=== PATIENT | female | born 1990 | race Caucasian/White ===

== ENCOUNTER 2017-02-06 10:04 | Emergency (ER) | payer MEDICAID ==
[2017-02-06 12:03] LABS: BASOPHIL % 0.3 % (0-2); PLATELET COUNT 388 x10^3mcL (130-400)
[2017-02-06 12:24] LABS: CALCIUM 9.3 mg/dL (8.5-10.1); CARBON DIOXIDE 24.8 mmol/L (21-32); CHLORIDE SERUM 101 mmol/L (98-107); CREATININE SERUM 0.7 mg/dL (0.6-1.0); GFR1 > 60 mL/min; GLUCOSE SERUM 119 mg/dL (74-106); SODIUM SERUM 137 mmol/L (136-145)
[2017-02-06 12:29] LABS: ALBUMIN 4.2 g/dL (3.4-5.0); ALKALINE PHOSPHATASE 87 U/L (46-116); ALT/SGPT 74 U/L (14-59); AST/SGOT 24 U/L (15-37); LIPASE 77 IU/L (73-393)
[2017-02-06 12:30] LABS: TOTAL PROTEIN, SERUM 8.7 g/dL (6.4-8.2)
[2017-02-06 15:45] VITALS: BP 121/60
== END 2017-02-06 15:45 | disposition home or self-care (01) ==
LOC: ED 10:04
PROVIDERS: Emergency Medicine
DX: R10.13 Epigastric pain (principal); R11.10 Vomiting, unspecified; R50.9 Fever, unspecified; Q90.9 Down syndrome, unspecified
CPT/HCPCS: J7030

== ENCOUNTER 2019-07-01 18:27 | Emergency (ER) | payer MEDICAID ==
[~2019-07-01] VITALS: Ht 142.2 cm; Wt 63.0 kg
[2019-07-01 21:38] LABS: PLATELET COUNT 347 x10^3mcL (130-400); RED CELL DISTRIBUTION WIDTH 14.3 % (11.5-14.5)
[2019-07-01 21:46] LABS: CALCIUM 8.3 mg/dL (8.5-10.1); CARBON DIOXIDE 28.7 mmol/L (21-32); CHLORIDE SERUM 103 mmol/L (98-107); CREATININE SERUM 0.9 mg/dL (0.6-1.0); GFR1 > 60 mL/min; GLUCOSE SERUM 97 mg/dL (74-106); POTASSIUM SERUM 3.9 mmol/L (3.5-5.1); SODIUM SERUM 140 mmol/L (136-145)
[2019-07-01 21:51] LABS: ALBUMIN 3.4 g/dL (3.4-5.0); ALKALINE PHOSPHATASE 70 U/L (46-116); ALT/SGPT 56 U/L (14-59); AST/SGOT 15 U/L (15-37); BILIRUBIN TOTAL 0.2 mg/dL (0.20-1.00); LIPASE 60 IU/L (73-393)
[2019-07-01 22:26] VITALS: BP 106/54
== END 2019-07-01 22:26 | disposition home or self-care (01) ==
LOC: ED 18:27
PROVIDERS: Emergency Medicine
DX: R10.31 Right lower quadrant pain (principal); R10.32 Left lower quadrant pain; R30.0 Dysuria
CPT/HCPCS: 36415